=== PATIENT | female | born 1950 ===

== ENCOUNTER → 2018-11-23 21:22 | Outpatient (REF) | payer OTHER, SELFPAY ==
[2018-11-23 22:47] LABS: Cholesterol 237 mg/dL (140-199); HDL Cholesterol 50 mg/dL (40-60); LDL Cholesterol Calculated 162 mg/dL (<100); Triglycerides 124 mg/dL (35-150)
[2018-11-23 23:02] LABS: Free T3, Triiodothyronine Free 3.12 pg/mL (2.77-5.27); Free T4, Direct Thyroxine 0.96 ng/dL (0.78-2.19)
[2018-11-23 23:16] LABS: Thyroid Stimulating Hormone 2.22 uIU/mL (0.47-4.68)
[2018-11-24 00:14] LABS: Progesterone, Total 0.51 ng/mL
[2018-11-27 18:04] LABS: Apolipoprotein B 121 mg/dL (49-103)
[2018-11-28 20:04] LABS: Estrogen 74.1 pg/mL
[2018-11-29 14:00] LABS: Testosterone, Total 28.4; Testosterone,Free 1.3
== END ==
LOC: LAB 21:22
PROVIDERS: Visit Provider Naturopath
DX: E78.5 Hyperlipidemia, unspecified (principal); E03.9 Hypothyroidism, unspecified; Z79.890 Hormone replacement therapy; Z80.3 Family history of malignant neoplasm of breast; N95.8 Other specified menopausal and perimenopausal disorders
CPT/HCPCS: 36415; 80061; 81291; 82672; 84144; 84402; 84403; 84439; 84443; 84481

== ENCOUNTER → 2018-11-26 21:56 | Outpatient (REF) | payer OTHER, SELFPAY | LOC: LAB 21:56 | PROVIDERS: Visit Provider Naturopath | DX: E78.5 Hyperlipidemia, unspecified (principal); E03.9 Hypothyroidism, unspecified; N95.8 Other specified menopausal and perimenopausal disorders; Z79.890 Hormone replacement therapy; Z80.3 Family history of malignant neoplasm of breast | CPT/HCPCS: 36415; 81291 ==